=== PATIENT | female | born 1970 | race Hispanic/Latino ===

== ENCOUNTER 2017-09-12 15:45 | Emergency (ER) | payer OTHER, SELFPAY ==
[2017-09-12 16:13] LABS: Bilirubin Negative (Negative); Blood, Urine Negative (Negative); Clarity CLEAR (Clear); Glucose, Urine (Dipstick) Negative (Negative); Leukocyte Trace (Negative); Nitrite Negative (Negative); Protein, Urine (Dipstick) Negative (Neg-Trace); Specific Gravity, Urine 1.006 (1.002-1.036); Urobilinogen 0.2 mg/dL (0.2-1.0)
[2017-09-12 16:15] LABS: Bacteria/HPF 1+ HPF (None Seen); Hyaline Casts/LPF 0-3 HYALINE CAST LPF (0-3 Hyaline); Pathc Cast-AUWi Flag 0.13 (0-2.49); RBC/HPF 0-3 HPF (0-3); Squamous Epithelial 0-3 HPF (0-3)
[2017-09-12 18:47] LABS: #Basophils 0.1 thou/uL (0.0-0.2); #Eosinphils 0.5 thou/uL (0.0-0.7); #Lymphocytes 3.2 thou/uL (1.20-3.40); #Monocytes 0.7 thou/uL (0.11-0.59); #Neutrophils 3.4 thou/uL (1.40-6.50); %Basophils 0.9 % (0.0-1.0); %Eosinophils 6.7 % (0.0-10.0); %Lymphocytes 40.6 % (21.0-51.0); %Monocytes 8.8 % (0.0-10.0); %Neutrophils 43.1 % (42.0-75.0); Hemoglobin 13.2 g/dL (12.0-16.0); Mean Corpuscular HGB CONC 34.7 g/dL (32.0-36.0); Mean Corpuscular Hemoglobin 31.7 pg (27.0-31.0); Mean Corpuscular Volume 91.5 fl (81.0-99.0); Platelet Count 363 thou/uL (130-400); RBC Distribution Width 12.1 % (11.5-14.5); Red Blood Cell (RBC) Count 4.16 mill/uL (4.20-5.40)
[2017-09-12 19:10] LABS: ALT (SGPT) 25 U/L (8-55); AST (SGOT) 21 U/L (5-34); Albumin 4.1 g/dL (3.5-5.0); Alkaline Phosphatase 100 U/L (40-150); Anion Gap 11 mmol/L (10-20); BUN (Urea Nitrogen) 8 mg/dL (7.0-18.7); Bilirubin, Total 0.4 mg/dL (0.2-1.2); Calc. Creatinine Clearance 0 mL/min (70-130); Calcium 9.3 mg/dL (7.8-10.44); Carbon Dioxide 27 mmol/L (22-29); Chloride 103 mmol/L (98-107); Estimated GFR-MDRD Greater than 90; Globulin 3.9 g/dL (2.4-3.5); Glucose 110 mg/dL (70-105); Potassium 3.9 mmol/L (3.5-5.1); Sodium 137 mmol/L (136-145)
--- NOTE | 2017-09-12 20:26 | ULT ---
SONOGRAM PELVIS TRANSABDOMINAL IMAGING WITH DUPLEX EVALUATION: 09/12/17 HISTORY: Pelvic pain. FINDINGS: Urinary bladder is unremarkable. Uterus is surgically absent. Right ovary measures up to 7.4 cm with a 6.0 cm cyst. Good color and spectral doppler flow are present. Left ovary is 3.4 cm with follicles and good color and spectral doppler flow. No free fluid is apparent. The appendix is not visualized. IMPRESSION: 1. Right ovarian cyst, 6.0 cm. 2. Status post hysterectomy. POS: [facility]
[2017-09-12] MEDS ORDERED: Ketorolac Tromethamine 30 MG/ML VIAL ONE (20:43)
--- NOTE | 2017-09-12 21:07 | ULT ---
RENAL SONOGRAM 09/12/17 HISTORY: Right flank pain. FINDINGS: Right kidney is 8.3 cm. Left kidney is 10.9 cm. No evidence of hydronephrosis or mass. Tiny echogenic foci associated with each cortex are favored to represent arcuate arteries. Urinary bladder is unrem arkable. IMPRESSION: No evidence of urinary tract obstruction. POS: [facility]
== END 2017-09-12 21:33 | disposition home or self-care (01) ==
LOC: ERS 15:45
DX: N83.201 Unspecified ovarian cyst, right side (principal)
CPT/HCPCS: 36415; 76770; 76856; 80053; 81003; 81015; 85025; 93976; 96374; J1885

== ENCOUNTER 2018-10-31 03:50 | Inpatient (IN) | payer OTHER, SELFPAY ==
[2018-10-31] MEDS ORDERED: Ondansetron PF 4 MG/2 ML Vial ONE (04:13)
[2018-10-31 04:24] LABS: #Lymphocytes 0.5 thou/uL (1.20-3.40); #Monocytes 0.8 thou/uL (0.11-0.59); #Neutrophils 13.3 thou/uL (1.40-6.50); %Basophils 0.1 % (0.0-1.0); %Lymphocytes 3.6 % (21.0-51.0); %Monocytes 5.2 % (0.0-10.0); %Neutrophils 91.1 % (42.0-75.0); Hemoglobin 17.6 g/dL (12.0-16.0); Mean Corpuscular HGB CONC 33.6 g/dL (32.0-36.0); Mean Corpuscular Hemoglobin 30.7 pg (27.0-31.0); Mean Corpuscular Volume 91.4 fL (78.0-98.0); Mean Platelet Volume 8.2 fL (7.4-10.4); Platelet Count 407 thou/uL (130-400); RBC Distribution Width 11.8 % (11.5-14.5); Red Blood Cell (RBC) Count 5.73 mill/uL (4.20-5.40); White Blood Cell (WBC) Count 14.6 thou/uL (4.8-10.8)
[2018-10-31 04:38] LABS: BHCG - Serum Negative (NEGATIVE); Pregs Control Background? CLEAR/WHITE (CLR/WHITE); Pregs Control Bar Appear? YES (CONTROL BAR)
[2018-10-31 04:52] LABS: ALT (SGPT) 33 U/L (8-55); AST (SGOT) 25 U/L (5-34); Albumin 5.6 g/dL (3.5-5.0); Alkaline Phosphatase 121 U/L (40-150); Anion Gap 22 mmol/L (10-20); BUN (Urea Nitrogen) 28 mg/dL (7.0-18.7); Bilirubin, Total 0.6 mg/dL (0.2-1.2); Calc. Creatinine Clearance 0 mL/min (70-130); Calcium 10.7 mg/dL (7.8-10.44); Carbon Dioxide 15 mmol/L (22-29); Chloride 102 mmol/L (98-107); Estimated GFR-MDRD 19; Globulin 5.1 g/dL (2.4-3.5); Glucose 175 mg/dL (70-105); Lipase 8 U/L (8-78); Potassium 3.8 mmol/L (3.5-5.1); Protein, Total 10.7 g/dL (6.0-8.3); Sodium 135 mmol/L (136-145)
[2018-10-31 05:06] LABS: Bilirubin Moderate (Negative); Blood, Urine Small (Negative); Clarity TURBID (Clear); Glucose, Urine (Dipstick) 100 mg/dL (Negative); Leukocyte Moderate (Negative); Nitrite Negative (Negative); Protein, Urine (Dipstick) 100 mg/dL (Neg-Trace); Specific Gravity, Urine 1.025 (1.002-1.036); Urobilinogen 0.2 mg/dL (0.2-1.0)
[2018-10-31] MEDS ORDERED: Morphine 4 MG/ML VIAL ONE (05:21)
[2018-10-31 05:23] LABS: Pathc Cast-AUWi Flag 3.77 (0-2.49); Yeast-AUWi Flag 40.1 (0-25.0)
[2018-10-31 05:26] LABS: Bacteria/HPF 1+ HPF (None Seen); Crystals/HPF 2+ AMORPH URATES HPF (Negative)
[2018-10-31 05:27] LABS: Hyaline Casts/LPF 7-10 HYALINE CAST LPF (0-3 Hyaline)
[2018-10-31 05:28] LABS: Other Casts/LPF 0-3 COARSE GRAN LPF (0-3 Hyaline); Renal Epithelial 0-3 HPF (0-3); Transitional Epithelial 0-3 HPF (0-3); Yeast-All Forms None Seen HPF (None Seen)
[2018-10-31] MEDS ORDERED: cefTRIAXone\\ROCEPHIN 2 GM VIAL ONE (06:00)
[2018-10-31] MEDS ORDERED: Ondansetron PF 4 MG/2 ML Vial IVP PRN ×2 (07:27→08:50)
[2018-10-31] MEDS ORDERED: Ondansetron ODT 4 MG TAB PO PRN ×2 (07:28→08:50)
[2018-10-31] MEDS ORDERED: Acetaminophen 325 MG TAB PO PRN (07:28)
[2018-10-31] MEDS ORDERED: Sodium Chloride 0.9% 1,000 ML IV SCH (07:30)
[2018-10-31 08:06] VITALS: BMI 29.2
[2018-10-31] MEDS ORDERED: Calcium Carbonate 500 MG ChewTAB PO PRN (08:50)
[2018-10-31] MEDS ORDERED: Senokot S 8.6-50 MG TAB PO PRN (08:50)
[2018-10-31 09:26] LABS: Lactic Acid 1.2 mmol/L (0.5-2.2)
[2018-10-31 09:52] LABS: Anion Gap 8 mmol/L (10-20); BUN (Urea Nitrogen) 19 mg/dL (7.0-18.7); Calc. Creatinine Clearance 69 mL/min (70-130); Calcium 7.8 mg/dL (7.8-10.44); Carbon Dioxide 24 mmol/L (22-29); Chloride 110 mmol/L (98-107); Estimated GFR-MDRD 55; Glucose 107 mg/dL (70-105); Potassium 3.7 mmol/L (3.5-5.1); Sodium 138 mmol/L (136-145)
[2018-10-31] MEDS: Sodium Chloride 0.9% 1,000 ML IV SCH ×2 (10:38→16:29)
--- NOTE | 2018-10-31 12:08 | ULT ---
RENAL ULTRASOUND: INDICATIONS: Pyelonephritis. Assess for obstructive uropathy. FINDINGS: The right kidney measures 10 cm in length. The left kidney measures 11.6 cm in length. There is no hydronephrosis. Cortical echogenicity is normal. The urinary bladder is mildly distended and unrema rkable. IMPRESSION: Unremarkable renal ultrasound. POS: [facility]
[2018-10-31] MEDS ORDERED: Saccharomyces boulardii 250 MG CAP PO SCH (16:15)
[2018-10-31] MEDS: metroNIDAZOLE 500 MG in Premix Bag 1 BAG IVPB SCH (16:30)
--- NOTE | 2018-10-31 16:41 | HP ---
PRIMARY CARE PHYSICIAN: [facility]. CHIEF COMPLAINT: Nausea, vomiting, diarrhea of 1-day duration. HISTORY OF PRESENT ILLNESS: The patient is a 47-year-old female who started developing nausea, vomiting and diarrhea, one day after eating leftover chicken fajita. She had several episodes of vomiting without any blood. The diarrhea was watery. She also had generalized abdominal cramping. She felt feverish, however, did not record a temperature. No chills reported. She denies any dyspepsia or heartburn prior to this. She normally has bowel movement once a day. She denies previous endoscopies. In the emergency room, initial vital signs showed temperature 97.8, respirations 16, pulse rate of 110 with a blood pressure 99/80 with O2 saturation of 97% on room air. She received IV fluids with ceftriaxone, morphine, and Zofran in the emergency room. PAST MEDICAL HISTORY: Reviewed with the patient and none. PAST SURGICAL HISTORY: 1. Cholecystectomy. 2. Hysterectomy. ALLERGIES: NO KNOWN DRUG ALLERGIES. CURRENT HOME MEDICATION: Reviewed with the patient and none. SOCIAL HISTORY: The patient currently lives at home with her family. No smoking, alcohol, or drug use. FAMILY HISTORY: Negative for heart disease or GI malignancy. REVIEW OF SYSTEMS: All other review of systems was reviewed and were found negative. PHYSICAL EXAMINATION: VITAL SIGNS: As discussed above. GENERAL: A 47-year-old female in mild distress due to diarrhea. HEENT: Head is atraumatic, normocephalic. Sclerae anicteric. Dry mucous membranes. No oral lesion. NECK: Supple. No JVD appreciated. No carotid bruit. LUNGS: Clear to auscultation bilaterally. No wheezing, rales, or rhonchi. HEART: S1 and S2 present. Regular rate and rhythm. ABDOMEN: Soft. Bowel sounds were present, somewhat hyperactive. No rebound or guarding. No costovertebral angle tenderness. EXTREMITIES: No edema or calf tenderness. NEUROLOGIC: Grossly nonfocal, moves all 4 extremities. PSYCHIATRY: Alert, awake, and oriented x3. SKIN: Warm and dry. LYMPH NODES: No palpable lymph nodes in the neck. PERIPHERAL VASCULAR: Radial pulses are palpable bilaterally. MUSCULOSKELETAL: No joint swelling or tenderness. LABORATORY FINDINGS: WBC 14.6, hemoglobin 17.6, hematocrit 52.4, platelet of 407. Chemistry showed sodium 135, potassium 3.8, chloride 102, bicarb 15, BUN 28, and creatinine 2.71. Lactic acid was negative. test was negative. Urinalysis showed 1+ bacteria with greater than 50 wbc's, nitrite negative. Urine culture pending at this time. Renal ultrasound was negative for obstructive uropathy. EKG by my review showed sinus rhythm with nonspecific ST-T wave changes. IMPRESSION: 1. Sepsis with acute organ dysfunction, secondary to acute gastroenteritis. 2. Urinary tract infection. 3. Acute kidney injury secondary to nausea, vomiting, and diarrhea. 4. Metabolic acidosis secondary to acute kidney injury. 5. Hyponatremia secondary to dehydration. PLAN: The patient will be monitored on the medical floor. We will start her on IV ceftriaxone with Flagyl. Continue IV hydration. Recheck labs in a.m. Stool workup. Add probiotics. Plan of care was discussed with the patient in detail. She stated understanding. Job ID: [id number]
[2018-10-31] MEDS: cefTRIAXone\\ROCEPHIN 1 GM in Sodium Chloride 0.9% 100 ML IVPB SCH (17:57)
[2018-10-31] MEDS ORDERED: Loperamide HCl 2 MG CAP PO SCH (20:30)
[2018-10-31] MEDS ORDERED: diphenhydrAMINE 25 MG CAP PO SCH (20:30)
[2018-10-31] MEDS: Acetaminophen 325 MG TAB PO PRN (20:38)
[2018-10-31] MEDS ORDERED: Enoxaparin Sodium 30 MG/0.3 ML SYRINGE SC SCH (21:00)
[2018-11-01] MEDS: Sodium Chloride 0.9% 1,000 ML IV SCH ×2 (00:15→05:18)
[2018-11-01] MEDS: metroNIDAZOLE 500 MG in Premix Bag 1 BAG IVPB SCH ×3 (00:15→16:45)
[2018-11-01] MEDS: cefTRIAXone\\ROCEPHIN 1 GM in Sodium Chloride 0.9% 100 ML IVPB SCH ×2 (05:18→18:17)
[2018-11-01] MEDS: Acetaminophen 325 MG TAB PO PRN ×3 (05:21→16:45)
[2018-11-01 07:33] LABS: #Lymphocytes 0.7 thou/uL (1.20-3.40); #Monocytes 0.5 thou/uL (0.11-0.59); #Neutrophils 6.5 thou/uL (1.40-6.50); %Lymphocytes 9.2 % (21.0-51.0); %Neutrophils 84.7 % (42.0-75.0); Hemoglobin 12.2 g/dL (12.0-16.0); Mean Corpuscular HGB CONC 34.3 g/dL (32.0-36.0); Mean Corpuscular Hemoglobin 30.8 pg (27.0-31.0); Mean Corpuscular Volume 89.8 fL (78.0-98.0); Mean Platelet Volume 8.2 fL (7.4-10.4); Platelet Count 249 thou/uL (130-400); RBC Distribution Width 11.6 % (11.5-14.5); Red Blood Cell (RBC) Count 3.97 mill/uL (4.20-5.40); White Blood Cell (WBC) Count 7.7 thou/uL (4.8-10.8)
[2018-11-01 07:53] LABS: ALT (SGPT) 25 U/L (8-55); AST (SGOT) 24 U/L (5-34); Albumin 3.4 g/dL (3.5-5.0); Alkaline Phosphatase 62 U/L (40-150); Anion Gap 12 mmol/L (10-20); BUN (Urea Nitrogen) 5 mg/dL (7.0-18.7); Bilirubin, Total 0.4 mg/dL (0.2-1.2); Calc. Creatinine Clearance 107 mL/min (70-130); Calcium 7.6 mg/dL (7.8-10.44); Carbon Dioxide 16 mmol/L (22-29); Chloride 112 mmol/L (98-107); Estimated GFR-MDRD Greater than 90; Globulin 2.8 g/dL (2.4-3.5); Glucose 107 mg/dL (70-105); Magnesium 1.8 mg/dL (1.6-2.6); Protein, Total 6.2 g/dL (6.0-8.3); Sodium 137 mmol/L (136-145)
[2018-11-01] MEDS ORDERED: Sodium Chloride 0.9% 500 ML IV SCH ×2 (08:00→15:15)
[2018-11-01] MEDS: Loperamide HCl 2 MG CAP PO PRN ×3 (08:32→20:27)
[2018-11-01] MEDS: Saccharomyces boulardii 250 MG CAP PO SCH (08:32)
--- NOTE | 2018-11-01 10:49 | PDOC.PN ---
- Subjective Encounter Start Date: 11/01/18 Encounter Start Time: 10:00 Patient seen and examined for Sepsis. Abd pain improving. Diarrhea improving. Nausea controlled. No new complaints. No overnight events - Objective Resuscitation Status - Order Detail: 10/31/18 08:50 Resuscitation Status Routine Resuscitation Status: FULL: Full Resuscitation MAR Reviewed: Yes Vital Signs & Weight: Vital Signs (12 hours) Temp Pulse Resp BP Pulse Ox 11/01/18 08:00 93 L 11/01/18 07:19 99.2 F 84 20 82/45 L 93 L 11/01/18 03:30 100.2 F H 100 18 98/58 L 96 Weight Weight 145 lb I&O: 10/31/18 11/01/18 11/02/18 06:59 06:59 06:59 Intake Total 2520 Balance 2520 Result Diagrams: 11/01/18 07:04 11/01/18 07:04 Radiology Reviewed by me: No (Renal USG - neg) Phys Exam - Physical Examination Constitutional: NAD Neck: no JVD Respiratory: no wheezing, no rales, no rhonchi, clear to auscultation bilateral Cardiovascular: RRR, no rub no heaves/pulsations Gastrointestinal: soft, non-tender, no distention, positive bowel sounds Musculoskeletal: no edema, pulses present Neurological: non-focal, normal sensation, moves all 4 limbs Psychiatric: normal affect, A&O x 3 Dx/Plan - Plan DVT proph w/SCDs IMPRESSION: 1. Sepsis with acute organ dysfunction, secondary to acute gastroenteritis ? Viral 2. Urinary tract infection. 3. Hypotension/Acute kidney injury. 4. Metabolic acidosis. 5. Hyponatremia secondary to dehydration. 6. Hypokalemia. PLAN: IV fluid bolus PRN for hypotension Replace Potassium Stool w/u negative except Stool WBC Await urine culture BMP in AM Cont other meds as below Review of Systems - Review of Systems Respiratory: negative: Cough, Dry, Shortness of Breath, Hemoptysis, SOB with Excertion, Pleuritic Pain, Sputum, Wheezing Cardiovascular: negative: chest pain, palpitations, orthopnea, paroxysmal nocturnal dyspnea, edema, light headedness, other - Medications/Allergies Allergies/Adverse Reactions: Allergies Allergy/AdvReac Type Severity Reaction Status Date / Time No Known Allergies Allergy Unverified 10/31/18 07:26 Medications: Current Medications Acetaminophen (Tylenol) 650 mg PO Q4H PRN PRN Reason: Headache/Fever/Mild Pain (1-3) Last Admin: 11/01/18 09:34 Dose: 650 mg Calcium Carbonate (Tums) 1,000 mg PO Q4H PRN PRN Reason: Heartburn or Indigestion Ceftriaxone Sodium 1 gm/ (Sodium Chloride) 100 mls @ 200 mls/hr IVPB 0600,1800 [facility] Last Admin: 11/01/18 05:18 Dose: 100 mls Metronidazole 500 mg/ Device 100 mls @ 100 mls/hr IVPB 0100,0900,1700 [facility] Last Admin: 11/01/18 10:29 Dose: 100 mls Potassium Chloride/Sodium Chloride (1/2 Ns W/Kcl 20 Meq) 1,000 mls @ 150 mls/ hr IV .Q6H40M [facility] Loperamide HCl (Imodium) 2 mg PO ASDIR PRN PRN Reason: Diarrhea/Loose Stools Last Admin: 11/01/18 08:32 Dose: 2 mg Ondansetron HCl (Zofran Odt) 4 mg PO Q6H PRN PRN Reason: Nausea/Vomiting Ondansetron HCl (Zofran) 4 mg IVP Q6H PRN PRN Reason: Nausea/Vomiting Saccharomyces Boulardii (Florastor) 250 mg PO DAILY [facility] Last Admin: 11/01/18 08:32 Dose: 250 mg Senna/Docusate Sodium (Senokot S) 2 tab PO BID PRN PRN Reason: Constipation Sodium Chloride (Flush - Normal Saline) 10 ml IVF Q12HR [facility] Last Admin: 11/01/18 09:33 Dose: Not Given Sodium Chloride (Flush - Normal Saline) 10 ml IVF PRN PRN PRN Reason: Saline Flush
[2018-11-01] MEDS: 1/2 NS w/KCL 20 mEq 1,000 ML IV SCH ×2 (12:09→13:00)
[2018-11-01 13:38] LABS: #Lymphocytes 0.9 thou/uL (1.20-3.40); #Monocytes 0.3 thou/uL (0.11-0.59); #Neutrophils 3.7 thou/uL (1.40-6.50); %Basophils 0.5 % (0.0-1.0); %Eosinophils 0.4 % (0.0-10.0); %Lymphocytes 18.4 % (21.0-51.0); %Monocytes 5.2 % (0.0-10.0); %Neutrophils 75.6 % (42.0-75.0); Hemoglobin 12.3 g/dL (12.0-16.0); Mean Corpuscular HGB CONC 34.6 g/dL (32.0-36.0); Mean Corpuscular Hemoglobin 31.9 pg (27.0-31.0); Mean Corpuscular Volume 92.2 fL (78.0-98.0); Mean Platelet Volume 7.7 fL (7.4-10.4); Platelet Count 225 thou/uL (130-400); RBC Distribution Width 11.8 % (11.5-14.5); Red Blood Cell (RBC) Count 3.86 mill/uL (4.20-5.40); White Blood Cell (WBC) Count 4.9 thou/uL (4.8-10.8)
[2018-11-01 13:50] LABS: Lactic Acid 0.8 mmol/L (0.5-2.2)
[2018-11-01 13:59] LABS: Anion Gap 9 mmol/L (10-20); BUN (Urea Nitrogen) 4 mg/dL (7.0-18.7); Calc. Creatinine Clearance 112 mL/min (70-130); Calcium 7.8 mg/dL (7.8-10.44); Carbon Dioxide 19 mmol/L (22-29); Chloride 112 mmol/L (98-107); Estimated GFR-MDRD Greater than 90; Glucose 92 mg/dL (70-105); Potassium 3.1 mmol/L (3.5-5.1); Sodium 137 mmol/L (136-145)
[2018-11-02] MEDS: metroNIDAZOLE 500 MG in Premix Bag 1 BAG IVPB SCH ×2 (01:38→08:41)
[2018-11-02] MEDS: 1/2 NS w/KCL 20 mEq 1,000 ML IV SCH ×2 (01:40→08:41)
[2018-11-02] MEDS: cefTRIAXone\\ROCEPHIN 1 GM in Sodium Chloride 0.9% 100 ML IVPB SCH (05:16)
[2018-11-02 06:07] LABS: Anion Gap 12 mmol/L (10-20); BUN (Urea Nitrogen) 4 mg/dL (7.0-18.7); Calc. Creatinine Clearance 119 mL/min (70-130); Calcium 8.2 mg/dL (7.8-10.44); Carbon Dioxide 19 mmol/L (22-29); Chloride 107 mmol/L (98-107); Estimated GFR-MDRD Greater than 90; Glucose 79 mg/dL (70-105); Potassium 3.8 mmol/L (3.5-5.1); Sodium 134 mmol/L (136-145)
[2018-11-02 08:13] VITALS: TEMP 98.5
[2018-11-02] MEDS: Saccharomyces boulardii 250 MG CAP PO SCH (08:41)
[2018-11-02 09:51] VITALS: BP 87/52
--- NOTE | 2018-11-02 09:55 | PDOC.PN ---
- Subjective Encounter Start Date: 11/02/18 Encounter Start Time: 08:10 -: old records requested/rev Patient seen and examined. No new complaints. No overnight events - Objective Resuscitation Status - Order Detail: 10/31/18 08:50 Resuscitation Status Routine Resuscitation Status: FULL: Full Resuscitation MAR Reviewed: Yes Vital Signs & Weight: Vital Signs (12 hours) Temp Pulse Resp BP BP BP BP 11/02/18 08:12 98.5 F 72 16 97/64 11/02/18 08:00 100/64 104/72 87/52 L 11/02/18 04:15 99.1 F 16 91/53 L 11/02/18 02:36 11/02/18 00:43 99.2 F 72 16 94/61 Pulse Ox 11/02/18 08:12 94 L 11/02/18 08:00 11/02/18 04:15 91 L 11/02/18 02:36 93 L 11/02/18 00:43 93 L Weight Admit Weight 145 lb Weight 145 lb I&O: 11/01/18 11/02/18 11/03/18 06:59 06:59 06:59 Intake Total 2520 920 120 Balance 2520 920 120 Result Diagrams: 11/01/18 13:18 11/02/18 05:21 Phys Exam - Physical Examination Constitutional: NAD HEENT: PERRLA, moist MMs, sclera anicteric, oral pharynx no lesions Neck: no JVD, supple Respiratory: no wheezing, no rales, no rhonchi Cardiovascular: RRR, no significant murmur, no rub Gastrointestinal: soft, non-tender, no distention, positive bowel sounds Musculoskeletal: no edema, pulses present Neurological: non-focal, normal sensation, moves all 4 limbs Lymphatic: no nodes Psychiatric: normal affect, A&O x 3 Skin: no rash, normal turgor Dx/Plan (1) Acute kidney failure Status: Acute (2) Hypokalemia Code(s): E87.6 - HYPOKALEMIA Status: Acute (3) Hyponatremia Code(s): E87.1 - HYPO-OSMOLALITY AND HYPONATREMIA Status: Acute (4) Metabolic acidosis Code(s): E87.2 - ACIDOSIS Status: Acute (5) Sepsis with acute organ dysfunction Code(s): A41.9 - SEPSIS, UNSPECIFIED ORGANISM; R65.20 - SEVERE SEPSIS WITHOUT SEPTIC SHOCK Status: Acute (6) UTI (urinary tract infection) Status: Acute (7) Volume depletion, gastrointestinal loss Code(s): E86.9 - VOLUME DEPLETION, UNSPECIFIED Status: Acute - Plan cont current plan of care * medication reviewed as below * symptomatic treatment * see discharge edwardo. Review of Systems - Review of Systems ENT: negative: Ear Pain, Ear Discharge, Nose Pain, Nose Discharge, Nose Congestion, Mouth Pain, Mouth Swelling, Throat Pain, Throat Swelling, Other Respiratory: negative: Cough, Dry, Shortness of Breath, Hemoptysis, SOB with Excertion, Pleuritic Pain, Sputum, Wheezing Cardiovascular: negative: chest pain, palpitations, orthopnea, paroxysmal nocturnal dyspnea, edema, light headedness, other Gastrointestinal: negative: Nausea, Vomiting, Abdominal Pain, Diarrhea, Constipation, Melena, Hematochezia, Other Genitourinary: negative: Dysuria, Frequency, Incontinence, Hematuria, Retention , Other Musculoskeletal: negative: Neck Pain, Shoulder Pain, Arm Pain, Back Pain, Hand Pain, Leg Pain, Foot Pain, Other Skin: negative: Rash, Lesions, Kory, Bruising, Other - Medications/Allergies Allergies/Adverse Reactions: Allergies Allergy/AdvReac Type Severity Reaction Status Date / Time No Known Allergies Allergy Unverified 10/31/18 07:26 Medications: Current Medications Acetaminophen (Tylenol) 650 mg PO Q4H PRN PRN Reason: Headache/Fever/Mild Pain (1-3) Last Admin: 11/01/18 16:45 Dose: 650 mg Calcium Carbonate (Tums) 1,000 mg PO Q4H PRN PRN Reason: Heartburn or Indigestion Ceftriaxone Sodium 1 gm/ (Sodium Chloride) 100 mls @ 200 mls/hr IVPB 0600,1800 [facility] Last Admin: 11/02/18 05:16 Dose: 100 mls Metronidazole 500 mg/ Device 100 mls @ 100 mls/hr IVPB 0100,0900,1700 [facility] Last Admin: 11/02/18 08:41 Dose: 100 mls Potassium Chloride/Sodium Chloride (1/2 Ns W/Kcl 20 Meq) 1,000 mls @ 150 mls/ hr IV .Q6H40M [facility] Last Admin: 11/02/18 08:41 Dose: 1,000 mls Loperamide HCl (Imodium) 2 mg PO ASDIR PRN PRN Reason: Diarrhea/Loose Stools Last Admin: 11/01/18 20:27 Dose: 2 mg Ondansetron HCl (Zofran Odt) 4 mg PO Q6H PRN PRN Reason: Nausea/Vomiting Last Admin: 11/02/18 04:21 Dose: 4 mg Ondansetron HCl (Zofran) 4 mg IVP Q6H PRN PRN Reason: Nausea/Vomiting Last Admin: 11/01/18 16:48 Dose: 4 mg Saccharomyces Boulardii (Florastor) 250 mg PO DAILY [facility] Last Admin: 11/02/18 08:41 Dose: 250 mg Sodium Chloride (Flush - Normal Saline) 10 ml IVF Q12HR [facility] Last Admin: 11/01/18 20:29 Dose: 10 ml Sodium Chloride (Flush - Normal Saline) 10 ml IVF PRN PRN PRN Reason: Saline Flush
--- NOTE | 2018-11-02 11:06 | DIS ---
DATE OF ADMISSION: 10/31/2018 DATE OF DISCHARGE: 11/02/2018 PRIMARY CARE PHYSICIAN: [facility] Call Admission. DISCHARGE DISPOSITION: Home. PRIMARY DISCHARGE DIAGNOSES: 1. Acute kidney failure. 2. Hypokalemia. 3. Hyponatremia. 4. Metabolic acidosis. 5. Volume depletion due to diarrhea. 6. Urinary tract infection. 7. Sepsis with acute organ dysfunction. SECONDARY DISCHARGE DIAGNOSES: None. PRIMARY PROCEDURE/OPERATION: None. RADIOLOGICAL INVESTIGATION: Renal ultrasound was normal. SIGNIFICANT LABORATORY DATA: Hemoglobin 12.3, creatinine 0.62. Urinalysis suggestive of UTI. Urine culture grew E. coli. Stool for infection workup negative. DISCHARGE MEDICATION: 1. Ciprofloxacin 500 mg p.o. b.i.d. for 7 days. 2. Florastor 250 mg p.o. daily for 7 days. CONTRAINDICATION: None. CODE STATUS: Full code. INPATIENT CODING COMPLIANCE SPECIALIST: None. ALLERGIES: NO KNOWN DRUG ALLERGIES. DISCHARGE PLAN: Post hospital, the patient will follow up with primary care physician in 1 week. HOSPITAL COURSE: A 47-year-old female with above-mentioned medical problem, who was admitted by Dr. Alfonso Garcia. Please see his H and P for further details. The patient was having nausea, vomiting, diarrhea, and poor p.o. intake, and she was clinically dehydrated. She had hyponatremia, hypokalemia, and acute kidney failure. She was also having urinary tract infection symptoms. She was septic on admission. She was treated with IV fluid, empiric antibiotic therapy. Her renal function improved to normal after hydration. Her urine culture grew E. coli and based on culture and sensitivity result, we changed to ciprofloxacin. On discharge, her stool for infection workup was negative. The patient is seen and examined at bedside today. She is completely doing much better. She is asymptomatic. I spoke with the patient's son and updated about plan. The patient wants to go home today. The patient is seen and examined at bedside today. Please see my progress note from today for further detail. Job ID: [id number]
== END 2018-11-02 11:09 | disposition home or self-care (01) | DRG 872 ==
LOC: ERS 03:50 → T4-A 06:04
PROVIDERS: ADMIT Internal Medicine; ATTEND Internal Medicine
DX: A41.9 Sepsis, unspecified organism (principal); N39.0 Urinary tract infection, site not specified; N17.9 Acute kidney failure, unspecified; E87.2 Acidosis; E87.1 Hypo-osmolality and hyponatremia; E86.0 Dehydration; E87.6 Hypokalemia; R65.20 Severe sepsis without septic shock; B96.20 Unspecified Escherichia coli [E. coli] as the cause of diseases classified elsewhere; K52.9 Noninfective gastroenteritis and colitis, unspecified; Z90.49 Acquired absence of other specified parts of digestive tract; Z90.710 Acquired absence of both cervix and uterus
CPT/HCPCS: 36415; 76770; 80048; 80053; 81003; 81015; 82533; 83605; 83630; 83690; 83735; 84703; 85025; 87045; 87046; 87077; 87086; 87186; 87324; 87328; 87329; 87449; 87899; 93005; 96361; 96365; 96375; J0696; J2270; J2405; J3480; J3490; Q0162; Q0163

== ENCOUNTER 2019-07-10 01:28 | Emergency (ER) | payer SELFPAY | END 2019-07-10 03:18 | disposition home or self-care (01) | LOC: ERS 01:28 | DX: J11.1 Influenza due to unidentified influenza virus with other respiratory manifestations (principal) | CPT/HCPCS: 87804; 99283 ==